=== PATIENT | female | born 1945 | race Caucasian/White ===

== ENCOUNTER → 2018-12-24 | Outpatient (CLI) | payer MEDICARE ==
--- NOTE | 2018-12-24 11:27 | Diagnostic Imaging Report ---
INDICATION: Right-sided sacral pain AP and lateral views of the sacrum shows no fracture. Sacroiliac joints are symmetric and appear normal. IMPRESSION: Negative sacrococcyx. Dictated by: Dictated on workstation # [id number]
--- NOTE | 2018-12-24 11:28 | Diagnostic Imaging Report ---
INDICATION: Low back pain Lumbar spine AP and lateral views of the lumbar spine show normal vertebral body height and alignment. There is mild degenerative disc changes at L1-2 and L2-3 with small osseous osteophytes forming at the anterior margins of the vertebral body endplates. IMPRESSION: Mild spondylosis deformans. No acute abnormality seen. Dictated by: Dictated on workstation # [id number]
== END ==
LOC: RAD FS 10:46
PROVIDERS: ATTEND Family Medicine
DX: M47.816 Spondylosis without myelopathy or radiculopathy, lumbar region (principal); M53.3 Sacrococcygeal disorders, not elsewhere classified
CPT/HCPCS: 72100; 72220

== ENCOUNTER 2019-02-15 05:18 | Emergency (ER) | payer MEDICARE ==
[~2019-02-15] VITALS: Ht 172.7 cm; Wt 86.2 kg
--- OUTSIDE RECORDS SUMMARY | 2019-02-15 05:25 | XMS REPORT | Continuity of Care Document ---
Author Organization Unknown Address Unknown Allergies There is no data. Medications There is no data. Problems Date Dx Coded Attending Type Code Diagnosis Diagnosed By 12/24/2018 TAVO WALLER MD, Ot M47.816 SPONDYLOSIS W/O MYELOPATHY OR RADICULOPA 12/24/2018 TAVO WALLER MD, Ot M53.3 SACROCOCCYGEAL DISORDERS, NOT ELSEWHERE 01/13/2019 TAVO WALLER MD, Ot M47.816 SPONDYLOSIS W/O MYELOPATHY OR RADICULOPA 01/13/2019 TAVO WALLER MD, Ot M53.3 SACROCOCCYGEAL DISORDERS, NOT ELSEWHERE 01/21/2019 TAVO WALLER MD, Ot M47.816 SPONDYLOSIS W/O MYELOPATHY OR RADICULOPA 01/21/2019 TAVO WALLER MD, Ot M53.3 SACROCOCCYGEAL DISORDERS, NOT ELSEWHERE Procedures There is no data. Results There is no data. Encounters ACCT No. Visit Date/Time Discharge Status Pt. Type Provider Facility Loc./Unit Complaint [id number] 12/24/2018 10:45:00 12/24/2018 23:59:59 [facility] [id number] 12/24/2018 10:46:00 12/24/2018 23:59:59 [facility] Outpatient TAVO WALLER MD [facility] RAD FS M54.5 M64.5
[2019-02-15] MEDS ORDERED: RT-ALBUTEROL/IPRATROPIUM 3 ML (DUONEB) VIAL INH STA (05:29)
[2019-02-15] MEDS ORDERED: LORazepam INJ 2 MG/ML (ATIVAN) VIAL IVP STA (05:29)
[2019-02-15] MEDS ORDERED: ASPIRIN 81 MG CHEW (CHILDREN'S ASA) PO ONE (05:30)
--- NOTE | 2019-02-15 05:39 | ED Chest Pain ---
General Stated Complaint: CHEST TIGHTNES/SOB Source: patient (YARY STONE MD) History of Present Illness Date Seen by Provider: Feb 15, 2019 Time Seen by Provider: 05:17 Initial Comments 73-year-old female presenting to the emergency department after waking up at 3 AM with shortness of breath and tightness in her chest. She has history of asthma in the past with allergies to try That they had. She reports having some sneezing and allergy type symptoms during the day yesterday but otherwise felt fine. She had gotten up at 3 AM and was sitting in a chair trying to help with her breathing but she was still having tightness in her chest and family after funny and decided she needed to come to the emergency department to be checked out. She denies any nausea or vomiting. She states the pain suddenly worse with movement or exertion. She has not found anything that makes tightness in her chest any better either. She is very anxious and tearful at times. (YARY STONE MD) Allergies and Home Medications Allergies Coded Allergies: Sulfa (Sulfonamide Antibiotics) (Verified Allergy, Unknown, 02/15/19) meperidine (Verified Allergy, Unknown, 02/15/19) propoxyphene (Verified Allergy, Unknown, 02/15/19) Patient Home Medication List Home Medication List Reviewed: Yes (YARY STONE MD) Review of Systems Review of Systems Constitutional: No chills, No diaphoresis, No fever EENTM: Nose Congestion Respiratory: Cough (with sneezing yesterday), Shortness of Air; Denies Stridor, Denies Wheezing Cardiovascular: Chest Pain (tightness in her chest) Gastrointestinal: No Symptoms Reported; Denies Nausea, Denies Vomiting Genitourinary: No Symptoms Reported Musculoskeletal: no symptoms reported Skin: No rash Psychiatric/Neurological: Anxiety Endocrine: No Symptoms Reported (YARY STONE MD) Past Yhxgiee-Iurudx-Wwybhm Hx Past Med/Social Hx: Reviewed Nursing Past Med/Soc Hx (YARY STONE MD) Patient Social History Recent Foreign Travel: No Contact w/Someone Who Travel: No (YARY STONE MD) Physical Exam Vital Signs Vital Signs - First Documented 02/15/19 05:37 Temp 97.9 Pulse 75 Resp 20 B/P (MAP) 152/81 (104) Pulse Ox 97 O2 Delivery Room Air (REID POOLE DO) Vital Signs Capillary Refill : (YARY STONE MD) Height, Weight, BMI Height: '" Weight: lbs. oz. kg; BMI Method: General Appearance: WD/WN, Anxious HEENT: PERRL/EOMI, Pharynx Normal Neck: Full Range of Motion, Non Tender, Supple; No Carotid Bruit Respiratory: Chest Non Tender, Lungs Clear, Normal Breath Sounds, No Accessory Muscle Use, No Respiratory Distress Cardiovascular: Regular Rate, Rhythm, Normal Peripheral Pulses Gastrointestinal: Normal Bowel Sounds, No Pulsatile Mass, Non Tender, Soft Extremity: Normal Capillary Refill, Normal Inspection, Non Tender Neurologic/Psychiatric: Alert, Oriented x3 Skin: Normal Color, Warm/Dry (YARY STONE MD) Progress/Results/Core Measures Results/Orders Lab Results Laboratory Tests Test 02/15/19 05:30 Range/Units White Blood Count 7.4 4.3-11.0 10^3/uL Red Blood Count 4.56 4.35-5.85 10^6/uL Hemoglobin 13.6 11.5-16.0 G/DL Hematocrit 41 35-52 % Mean Corpuscular Volume 90 80-99 FL Mean Corpuscular Hemoglobin 30 25-34 PG Mean Corpuscular Hemoglobin Concent 33 32-36 G/DL Red Cell Distribution Width 13.4 10.0-14.5 % Platelet Count 307 130-400 10^3/uL Mean Platelet Volume 9.7 7.4-10.4 FL Neutrophils (%) (Auto) 48 42-75 % Lymphocytes (%) (Auto) 39 12-44 % Monocytes (%) (Auto) 11 0-12 % Eosinophils (%) (Auto) 1 0-10 % Basophils (%) (Auto) 1 0-10 % Neutrophils # (Auto) 3.6 1.8-7.8 X 10^3 Lymphocytes # (Auto) 2.9 1.0-4.0 X 10^3 Monocytes # (Auto) 0.8 0.0-1.0 X 10^3 Eosinophils # (Auto) 0.1 0.0-0.3 10^3/uL Basophils # (Auto) 0.0 0.0-0.1 10^3/uL Prothrombin Time 12.9 12.2-14.7 SEC INR Comment 0.9 0.8-1.4 Activated Partial Thromboplast Time 28 24-35 SEC Sodium Level 138 135-145 MMOL/L Potassium Level 3.9 3.6-5.0 MMOL/L Chloride Level 101 98-107 MMOL/L Carbon Dioxide Level 21 21-32 MMOL/L Anion Gap 16 H 5-14 MMOL/L Blood Urea Nitrogen 14 7-18 MG/DL Creatinine 0.83 0.60-1.30 MG/DL Estimat Glomerular Filtration Rate > 60 BUN/Creatinine Ratio 17 Glucose Level 121 H 70-105 MG/DL Calcium Level 8.8 8.5-10.1 MG/DL Corrected Calcium 8.6 8.5-10.1 MG/DL Magnesium Level 1.8 1.8-2.4 MG/DL Total Bilirubin 0.6 0.1-1.0 MG/DL Aspartate Amino Transf (AST/SGOT) 14 5-34 U/L Alanine Aminotransferase (ALT/SGPT) 17 0-55 U/L Alkaline Phosphatase 68 40-136 U/L Troponin T 6 <=10 NG/L Pro-B-Type Natriuretic Peptide 24.0 <75.0 PG/ML Total Protein 7.0 6.4-8.2 GM/DL Albumin 4.2 3.2-4.5 GM/DL (REID POOLE DO) Medications Given in ED Current Medications Medications Dose Ordered Sig/Norbert Route Start Time Stop Time Status Last Admin Dose Admin Aspirin 324 mg ONCE ONCE PO 02/15/19 05:30 02/15/19 05:33 DC 02/15/19 05:40 324 MG (RIED POOLE DO) Vital Signs/I&O 02/15/19 05:37 Temp 97.9 Pulse 75 Resp 20 B/P (MAP) 152/81 (104) Pulse Ox 97 O2 Delivery Room Air (REID POOLE DO) Progress Progress Note : Time: 05:28 Progress Note Obtain labs and chest x-ray with electrocardiogram. Will give aspirin in case any of this is cardiac related as well as try a DuoNeb breathing treatment in ca se some of this is allergy related. Will also give a low-dose of Ativan since she is very anxious. On my review of her electrocardiogram she has sinus rhythm and there is no acute ST elevation. She does have a single PVC present. She has no prior tracing for comparison. Will pass care to Dr. Poole at shift change for follow-up on test results and final disposition. (YARY STONE MD) Initial ECG Impression Date: Feb 15, 2019 Initial ECG Impression Time: 05:25 Initial ECG Rate: 73 Initial ECG Rhythm: Normal Sinus Initial ECG Intervals: Normal Initial ECG Impression: Normal Initial ECG Comparisson: No Previous ECG Available Comment Sinus rhythm with a heart rate is 73 bpm. MO interval of 207 ms. QT interval of 393 ms and QT corrected interval of 433 ms. There is no acute ST elevation. There is no prior tracing for comparison. She does have a single premature ventricular complexes. (YARY STONE MD) Transfer of Care Time: 06:00 Care transferred to: Dr. Poole (YARY STONE MD) Departure Impression Primary Impression: Sensation of chest tightness Additional Impression: Anxiety about health Disposition: 01 HOME, SELF-CARE Condition: Improved Departure-Patient Inst. Decision time for Depature: 06:52 (REID POOLE DO) Referrals: TAVO WALLER MD (PCP/Family) Primary Care Physician Patient Instructions: Chest Pain That Is Not Caused by the Heart (DC) YARY STONE MD Feb 15, 2019 05:39 REID POOLE DO Feb 15, 2019 06:52
[2019-02-15 05:59] LABS: HEMATOCRIT 41 % (35-52); HEMOGLOBIN 13.6 G/DL (11.5-16.0); MEAN CORPUSCULAR HEMOGLOBIN 30 PG (25-34); MEAN CORPUSCULAR VOLUME 90 FL (80-99); WHITE BLOOD COUNT 7.4 10^3/uL (4.3-11.0)
[2019-02-15 06:00] LABS: MEAN CORPUSCULAR HGB CONC 33 G/DL (32-36); MEAN PLATELET VOLUME 9.7 FL (7.4-10.4); PLATELET COUNT 307 10^3/uL (130-400); RED CELL DISTRIBUTION WIDTH 13.4 % (10.0-14.5)
[2019-02-15 06:01] LABS: BASOPHILS % (AUTO) 1 % (0-10); EOSINOPHILS # (AUTO) 0.1 10^3/uL (0.0-0.3); EOSINOPHILS % (AUTO) 1 % (0-10); LYMPHOCYTES # (AUTO) 2.9 X 10^3 (1.0-4.0); LYMPHOCYTES % (AUTO) 39 % (12-44); MONOCYTES # (AUTO) 0.8 X 10^3 (0.0-1.0); MONOCYTES % (AUTO) 11 % (0-12); NEUTROPHILS # (AUTO) 3.6 X 10^3 (1.8-7.8); NEUTROPHILS % (AUTO) 48 % (42-75)
[2019-02-15 06:13] LABS: INR 0.9 (0.8-1.4); PROTHROMBIN TIME PATIENT 12.9 SEC (12.2-14.7)
[2019-02-15 06:19] LABS: CARBON DIOXIDE 21 MMOL/L (21-32); CHLORIDE 101 MMOL/L (98-107); POTASSIUM 3.9 MMOL/L (3.6-5.0); SODIUM 138 MMOL/L (135-145)
[2019-02-15 06:20] LABS: ALANINE AMINOTRANSFERASE 17 U/L (0-55); ALBUMIN 4.2 GM/DL (3.2-4.5); ALKALINE PHOSPHATASE 68 U/L (40-136); BILIRUBIN,TOTAL 0.6 MG/DL (0.1-1.0); BUN/CREATININE RATIO 17; CALCIUM 8.8 MG/DL (8.5-10.1); CREATININE SERUM 0.83 MG/DL (0.60-1.30); GFR ESTIMATED > 60; GLUCOSE 121 MG/DL (70-105); MAGNESIUM 1.8 MG/DL (1.8-2.4)
--- NOTE | 2019-02-15 06:44 | Diagnostic Imaging Report ---
Portable chest Indication: Chest tightness and shortness of breath. Findings: The lungs demonstrate no focal alveolar consolidation. There is no significant effusion. There is no pneumothorax. Heart size and mediastinal contours appear appropriate. The vascularity appears normal. There is no acute or suspicious osseous abnormality. Impression: 1. No radiographic evidence of an acute cardio pulmonary process. Dictated by: Dictated on workstation # [id number]
[2019-02-15 07:01] VITALS: BP 129/67
== END 2019-02-15 07:01 | disposition home or self-care (01) ==
LOC: EDUNIT# 05:18 → ER FS 05:21
DX: R07.89 Other chest pain (principal); F41.9 Anxiety disorder, unspecified; J45.909 Unspecified asthma, uncomplicated; Z88.2 Allergy status to sulfonamides; Z88.8 Allergy status to other drugs, medicaments and biological substances
CPT/HCPCS: 36415; 71045; 80053; 83735; 83880; 84484; 85025; 85610; 85730; 93005; 93041

== ENCOUNTER 2021-04-16 12:02 | Emergency (ER) | payer MEDICARE ==
[~2021-04-16] VITALS: Ht 172.7 cm; Wt 91.0 kg
--- NOTE | 2021-04-16 12:05 | ED Cardiac General ---
History of Present Illness General Stated Complaint: CHEST PAIN History of Present Illness Date Seen by Provider: Apr 16, 2021 Time Seen by Provider: 12:05 Initial Comments 76-year-old female presents with epigastric/chest discomfort. Patient reports that this been going on for about 2 days. She is got some congestion, generalized malaise. No shortness of breath. Patient ports that she went to urgent care because she wanted tested for Covid. At that time she was found to be negative for Covid and influenza and strep. They recommended she come to the ER for further evaluation. She has some minimal discomfort that is tender that been there consistently. No reports of cough and fever. Patient has not experienced any diaphoresis or radiation to her arms or neck. Patient does not report thing that makes her symptoms worse. Allergies and Home Medications Allergies Coded Allergies: Sulfa (Sulfonamide Antibiotics) (Verified Allergy, Unknown, 02/15/19) meperidine (Verified Allergy, Unknown, 02/15/19) propoxyphene (Verified Allergy, Unknown, 02/15/19) Patient Home Medication List Home Medication List Reviewed: Yes Review of Systems Review of Systems Constitutional: No chills, No fever; malaise EENTM: No Symptoms Reported Respiratory: Denies Cough, Denies Shortness of Air Cardiovascular: See HPI; Denies Lightheadedness, Denies Palpitations Gastrointestinal: Denies Abdominal Pain, Denies Nausea, Denies Vomiting Genitourinary: No Symptoms Reported Musculoskeletal: no symptoms reported Skin: no symptoms reported Psychiatric/Neurological: No Symptoms Reported Endocrine: No Symptoms Reported Hematologic/Lymphatic: No Symptoms Reported Past Tqfpddc-Jdhqka-Zmjfqw Hx Seasonal Allergies Seasonal Allergies: No Past Medical History Surgeries: Yes (Hernia Repair) Appendectomy, Gallbladder, Tonsillectomy Respiratory: Yes Asthma, Sleep Apnea Cardiac: Yes Hypertension Neurological: Yes (Fibromyalgia) Gastrointestinal: No Musculoskeletal: No Endocrine: Yes Hypothyroidsim HEENT: No Cancer: No Psychosocial: Yes Anxiety Blood Disorders: No Physical Exam Vital Signs Vital Signs - First Documented 04/16/21 12:05 Temp 36.6 Pulse 88 Resp 17 B/P (MAP) 156/109 (125) Pulse Ox 98 O2 Delivery Room Air Capillary Refill : Height, Weight, BMI Height: 5'8.00" Weight: 190lbs. 0oz. 86.808763ml; BMI Method:Stated General Appearance: No Apparent Distress, WD/WN Respiratory: Lungs Clear, Normal Breath Sounds Cardiovascular: Regular Rate, Rhythm, No Edema Gastrointestinal: Non Tender, Soft Extremity: Normal Capillary Refill, Normal Inspection Neurologic/Psychiatric: Alert, Oriented x3, No Motor/Sensory Deficits, Normal Mood/Affect, microelectronics assembler II-XII Norm as Tested Skin: Normal Color, Warm/Dry Progress/Results/Core Measures Results/Orders Lab Results Laboratory Tests Test 04/16/21 13:02 Range/Units White Blood Count 9.6 4.3-11.0 10^3/uL Red Blood Count 4.76 4.35-5.85 10^6/uL Hemoglobin 14.2 11.5-16.0 G/DL Hematocrit 42 35-52 % Mean Corpuscular Volume 89 80-99 FL Mean Corpuscular Hemoglobin 30 25-34 PG Mean Corpuscular Hemoglobin Concent 34 32-36 G/DL Red Cell Distribution Width 13.0 10.0-14.5 % Platelet Count 318 130-400 10^3/uL Mean Platelet Volume 9.4 7.4-10.4 FL Immature Granulocyte % (Auto) 0 % Neutrophils (%) (Auto) 59 42-75 % Lymphocytes (%) (Auto) 32 12-44 % Monocytes (%) (Auto) 7 0-12 % Eosinophils (%) (Auto) 1 0-10 % Basophils (%) (Auto) 1 0-10 % Neutrophils # (Auto) 5.7 1.8-7.8 X 10^3 Lymphocytes # (Auto) 3.1 1.0-4.0 X 10^3 Monocytes # (Auto) 0.7 0.0-1.0 X 10^3 Eosinophils # (Auto) 0.1 0.0-0.3 10^3/uL Basophils # (Auto) 0.1 0.0-0.1 10^3/uL Immature Granulocyte # (Auto) 0.0 0.0-0.1 10^3/uL Sodium Level 138 135-145 MMOL/L Potassium Level 4.5 3.6-5.0 MMOL/L Chloride Level 103 98-107 MMOL/L Carbon Dioxide Level 24 21-32 MMOL/L Anion Gap 11 5-14 MMOL/L Blood Urea Nitrogen 14 7-18 MG/DL Creatinine 0.96 0.60-1.30 MG/DL Estimat Glomerular Filtration Rate 57 BUN/Creatinine Ratio 15 Glucose Level 86 70-105 MG/DL Calcium Level 9.7 8.5-10.1 MG/DL Corrected Calcium 9.6 8.5-10.1 MG/DL Total Bilirubin 0.4 0.1-1.0 MG/DL Aspartate Amino Transf (AST/SGOT) 12 5-34 U/L Alanine Aminotransferase (ALT/SGPT) 13 0-55 U/L Alkaline Phosphatase 73 40-136 U/L Troponin I < 0.30 <0.30 NG/ML C-Reactive Protein < 0.30 <0.50 MG/DL Total Protein 7.1 6.4-8.2 GM/DL Albumin 4.1 3.2-4.5 GM/DL Lipase 12 8-78 U/L My Orders Orders - PATY JACKSON L DO Ekg Tracing (04/16/21 12:11) Monitor-Rhythm Ecg Trace Only (04/16/21 12:11) Cbc With Automated Diff (04/16/21 12:11) Comprehensive Metabolic Panel (04/16/21 12:11) Lipase (04/16/21 12:11) Crp Fs (04/16/21 12:11) Troponin I Fs (04/16/21 12:11) Chest Pa/Lat (2 View) (04/16/21 12:23) Vital Signs/I&O 04/16/21 12:05 Temp 36.6 Pulse 88 Resp 17 B/P (MAP) 156/109 (125) Pulse Ox 98 O2 Delivery Room Air Progress Progress Note : Progress Note Patient with no acute findings on chest x-ray, labs, EKG. Patient with mild chest congestion over the last couple days. Discussed with her that there is a variety of things that could cause what she is feeling and suggest she follow with her primary care provider for further outpatient evaluation. Patient is discharged in stable condition Initial ECG Impression Date: Apr 16, 2021 Initial ECG Impression Time: 12:07 Initial ECG Rate: 75 Initial ECG Rhythm: Normal Sinus Initial ECG Intervals: Normal Initial ECG Impression: Normal Departure Impression Primary Impression: Chest congestion Disposition: HOME, SELF-CARE Condition: Stable Departure-Patient Inst. Referrals: SELF,TAVO PEACOCK (PCP/Family) Primary Care Physician Patient Instructions: Chest Pain That Is Not Caused by the Heart (DC) Add. Discharge Instructions: Follow-up with your primary care provider for further evaluation PATY JACKSON DO Apr 16, 2021 12:05
[2021-04-16 13:09] LABS: BASOPHILS % (AUTO) 1 % (0-10); EOSINOPHILS % (AUTO) 1 % (0-10); HEMATOCRIT 42 % (35-52); HEMOGLOBIN 14.2 G/DL (11.5-16.0); LYMPHOCYTES % (AUTO) 32 % (12-44); MEAN CORPUSCULAR HEMOGLOBIN 30 PG (25-34); MEAN CORPUSCULAR HGB CONC 34 G/DL (32-36); MEAN CORPUSCULAR VOLUME 89 FL (80-99); MEAN PLATELET VOLUME 9.4 FL (7.4-10.4); MONOCYTES % (AUTO) 7 % (0-12); NEUTROPHILS % (AUTO) 59 % (42-75); PLATELET COUNT 318 10^3/uL (130-400); WHITE BLOOD COUNT 9.6 10^3/uL (4.3-11.0)
[2021-04-16 13:10] LABS: BASOPHILS # (AUTO) 0.1 10^3/uL (0.0-0.1); EOSINOPHILS # (AUTO) 0.1 10^3/uL (0.0-0.3); LYMPHOCYTES # (AUTO) 3.1 X 10^3 (1.0-4.0); MONOCYTES # (AUTO) 0.7 X 10^3 (0.0-1.0); NEUTROPHILS # (AUTO) 5.7 X 10^3 (1.8-7.8)
[2021-04-16 13:29] LABS: ALANINE AMINOTRANSFERASE 13 U/L (0-55); ALBUMIN 4.1 GM/DL (3.2-4.5); ALKALINE PHOSPHATASE 73 U/L (40-136); BILIRUBIN,TOTAL 0.4 MG/DL (0.1-1.0); BUN/CREATININE RATIO 15; CALCIUM 9.7 MG/DL (8.5-10.1); CARBON DIOXIDE 24 MMOL/L (21-32); CHLORIDE 103 MMOL/L (98-107); CREATININE SERUM 0.96 MG/DL (0.60-1.30); GFR ESTIMATED 57; GLUCOSE 86 MG/DL (70-105); LIPASE 12 U/L (8-78); POTASSIUM 4.5 MMOL/L (3.6-5.0); SODIUM 138 MMOL/L (135-145); TOTAL PROTEIN 7.1 GM/DL (6.4-8.2)
[2021-04-16 14:00] VITALS: BP 153/78
--- NOTE | 2021-04-16 14:17 | Diagnostic Imaging Report ---
EXAM: CHEST PA/LAT (2 VIEW) INDICATION: Chest congestion. COMPARISON: Chest radiograph 02/15/2019. FINDINGS: Normal heart size and pulmonary vascularity. No dense consolidation, pleural effusion or pneumothorax. No acute osseous findings. Cholecystectomy clips. IMPRESSION: No acute cardiopulmonary findings. Dictated by: Dictated on workstation # [id number]
== END 2021-04-16 14:00 | disposition home or self-care (01) ==
LOC: EDUNIT# 12:02 → ER FS 12:03
DX: R09.89 Other specified symptoms and signs involving the circulatory and respiratory systems (principal); J45.909 Unspecified asthma, uncomplicated; G47.30 Sleep apnea, unspecified; I10 Essential (primary) hypertension
CPT/HCPCS: 36415; 71046; 80053; 83690; 84484; 85025; 86141; 93005; 93041

== ENCOUNTER → 2021-05-22 | Outpatient (CLI) | payer MEDICARE | LOC: CARD 13:00 | PROVIDERS: ATTEND Internal Medicine Cardiovascular Disease | DX: R07.9 Chest pain, unspecified (principal); I08.3 Combined rheumatic disorders of mitral, aortic and tricuspid valves | CPT/HCPCS: 93306 ==

== ENCOUNTER → 2021-05-25 | Outpatient (CLI) | payer MEDICARE ==
[~2021-05-25] VITALS: Ht 172 cm; Wt 90.0 kg
[~2021-05-25] MED LIST: CATHETER FLUSH 10 ML SYR IV PRN
[2021-05-25 09:27] VITALS: BP 132/73
[2021-05-25 09:35] VITALS: BP 151/69
--- NOTE | 2021-05-26 09:01 | NUCLEAR STRESS TEST ---
TREADMILL NUCLEAR STRESS TEST Date of procedure: 05/25/2021. Primary care provider: Ramierz Traore MD. Admitting physician: Inder Ruiz Jr., MD. INDICATION: Chest pain. BASELINE ELECTROCARDIOGRAM: Sinus rhythm with first-degree AV block and low voltage in the precordial leads. STRESS TEST PROCEDURE: The patient was exercised for a total of 4 minutes and 4 seconds of the standard Gamal protocol achieving a maximum MET level of 6.2. The resting heart rate was 66 bpm and the peak heart rate was 150 bpm, which represents 104% of the maximum predicted heart rate. The resting blood pressure was 132/73 mmHg and the peak blood pressure was 210/67 mmHg. This represents a normal heart rate and a hypertensive blood pressure response to exercise. The test was stopped due to fatigue. There was no chest discomfort during the test. There were no arrhythmias during the test. There were no significant stress induced electrocardiogram changes. The patient exhibited good exercise capacity for age. NUCLEAR PROCEDURE: The patient was administered 10.1 mCi of intravenous technetium 99m Tetrofosmin at rest for the rest images. The patient was subsequently administered 33 mCi of intravenous technetium 99 M Tetrofosmin at peak stress for the stress images. Following an appropriate wait after each injection, imaging was obtained. The images were subsequently processed and reformatted in the usual views. Gated imaging was obtained. The image quality was adequate. CT attenuation correction was used as a adjunct to standard imaging. Both the corrected and uncorrected images were reviewed for interpretation. NUCLEAR RESULTS: There was normal myocardial perfusion in all segments without evidence of infarction or ischemia. There was normal left ventricular chamber size with an end-diastolic volume of 37 mL and an end-systolic volume of 10 mL. There was no evidence of transient ischemic dilatation. The TID ratio was 0.91. There was normal wall motion in all segments with a calculated ejection f raction of 74%. IMPRESSION: 1. Normal heart rate and i.e. hypertensive blood pressure response to exercise. 2. There was no exercise-induced chest discomfort, arrhythmias, or electrocardiogram changes. 3. The patient exhibited good exercise capacity for age. 4. There was normal myocardial perfusion in all segments without evidence of infarction or ischemia. 5. There was normal wall motion in all segments with a calculated ejection fraction of 74%. Certain portions of this document may have been dictated utilizing voice recognition technology. Inherent to this technology, typographical and grammatical errors may exist. As much as I am diligent to identify and correct these mistakes, some errors may remain in the document. INDER RUIZ JR, MD May 26, 2021 09:01
== END ==
LOC: CARD 08:15
PROVIDERS: ATTEND Internal Medicine Cardiovascular Disease
DX: R07.9 Chest pain, unspecified (principal)
CPT/HCPCS: 78452; 93017; A9502

== ENCOUNTER → 2022-07-12 | Outpatient (CLI) | payer MEDICARE | LOC: CARDFS 13:00 | PROVIDERS: ATTEND Internal Medicine Cardiovascular Disease | DX: I34.0 Nonrheumatic mitral (valve) insufficiency (principal) | CPT/HCPCS: 93306 ==

== ENCOUNTER 2023-06-30 15:45 | Emergency (ER) | payer MEDICARE ==
[~2023-06-30] VITALS: Ht 172 cm; Wt 89.0 kg
--- NOTE | 2023-06-30 16:04 | ED Fall/Injury ---
General Chief Complaint: Trauma-Non Activation Stated Complaint: FALL; SHOULDER PAIN Nursing Triage Note: PT FELL ON HER DECK AND LANDED ON HER RIGHT SHOULDER. NO LOC. Source: patient, EMS History of Present Illness Date Seen by Provider: Jun 30, 2023 Time Seen by Provider: 16:03 Initial Comments 78-year-old female presenting by EMS from home after she had fallen while trying to water plants. She states that there was a staff that she missed and ended up falling. She fell on her right shoulder and right knee. She had recently had a scope done on the right knee. She is having increased pain especially with movement of the right shoulder. She denies hitting her head or losing consciousness. She denies having any nausea or vomiting. She was feeling fine before she misjudged the step and fell. Location Injury Occurred: HOME Occurred: just prior to arrival Severity: moderate Injuries/Pain Location: upper extremity (right shoulder), lower extremity (right knee) Context: tripped Loss of Consciousness: no loss of consciousness Modifying Factors: Worse With Movement Associated Symptoms (Fall): No Abdominal Pain, No Chest Pain, No Confusion, No Dizziness, No Headache, No Lightheadedness, No Muscle Spasms, No Nausea/Vomiting, No Neck Pain, No Ringing in Ears, No Seizures, No Shortness of Air, No Slurred Speech, No Trouble Walking, No Vision Changes Allergies and Home Medications Allergies Coded Allergies: Sulfa (Sulfonamide Antibiotics) (Verified Allergy, Unknown, 02/15/19) meperidine (Verified Allergy, Unknown, 02/15/19) propoxyphene (Verified Allergy, Unknown, 02/15/19) Patient Home Medication List Home Medication List Reviewed: Yes Review of Systems Review of Systems Constitutional: No chills, No fever Eyes: No Symptoms Reported Ears, Nose, Mouth, Throat: no symptoms reported Respiratory: no symptoms reported Cardiovascular: no symptoms reported Gastrointestinal: no symptoms reported Genitourinary: no symptoms reported Musculoskeletal: see HPI Skin: No change in color Psychiatric/Neurological: Denies Headache Past Raedcrb-Dyzhjc-Sejjly Hx Patient Social History Tobacco Use?: No Use of E-Cig and/or Vaping dev: No Substance use?: No Alcohol Use?: No Pt feels they are or have been: No Immunizations Up To Date Influenza Vaccine Up-to-Date: Yes; Up-to-Date First/Initial COVID19 Vaccinat: 10/2020 Second COVID19 Vaccination Rah: 11/2020 Third COVID19 Vaccination Date: 10/2020 Seasonal Allergies Seasonal Allergies: No Past Medical History Surgeries: Yes (Hernia Repair) Appendectomy, Gallbladder, Tonsillectomy Respiratory: Yes Asthma, Sleep Apnea Cardiac: Yes Hypertension Neurological: Yes (Fibromyalgia) Gastrointestinal: No Musculoskeletal: No Endocrine: Yes Hypothyroidsim HEENT: No Cancer: No Psychosocial: Yes Anxiety Blood Disorders: No Physical Exam Vital Signs Vital Signs - First Documented 06/30/23 15:49 Temp 36.4 Pulse 96 Resp 16 B/P (MAP) 159/80 (106) Pulse Ox 96 O2 Delivery Room Air Capillary Refill : Less Than 3 Seconds Height, Weight, BMI Height: 5'8.00" Weight: 190lbs. 0oz. 86.788979dn; 30.00 BMI Method:Stated General Appearance: WD/WN, mild distress HEENT: PERRL/EOMI, pharynx normal Neck: non-tender, full range of motion, supple, normal inspection Cardiovascular: normal peripheral pulses, regular rate, rhythm Respiratory: chest non-tender, lungs clear, normal breath sounds Extremities: normal capillary refill, swelling (mild swelling to right knee with 2 healing wounds from arthroscopy. pain with palpation and movement at knee. 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, no motor/sensory deficits, alert, oriented x 3 Skin: normal color, warm/dry Archana Coma Score Best Eye Response: (4) Open Spontaneously Best Verbal Response: (5) Oriented Best Motor Response: (6) Obeys Commands Archana Total: 15 Progress/Results/Core Measures Results/Orders My Orders Orders - YARY STONE MD Shoulder 3 View Right (06/30/23 15:54) Knee 3 View Right (06/30/23 15:54) Ketorolac Injection (Ketorolac Injection (06/30/23 16:13) Orthopedic Equiment (06/30/23 16:13) Ed Ortho/Other Supplies Order (06/30/23 16:13) Ice: Apply To Affected Area (06/30/23 16:13) Vital Signs/I&O 06/30/23 06/30/23 15:49 16:39 Temp 36.4 36.4 Pulse 96 96 Resp 16 16 B/P (MAP) 159/80 (106) 159/80 Pulse Ox 96 96 O2 Delivery Room Air Room Air Blood Pressure Mean: 106 Progress Progress Note #1: Progress Note Obtain x-rays of the right shoulder and right knee where she was having pain from the fall. Ice and elevation to help with pain. Progress Note #2: Progress Note On my personal review and interpretation of the three-view films of the right shoulder and right knee she has a AC separation on the right shoulder but I did not see any fracture. No acute bony abnormality on the right knee. Patient on follow-up and return precautions. Use ice and elevation as well as a sling to help with limiting movement of the right arm. Diagnostic Imaging Diagonstic Imaging: Xray Plain Films/CT/US/NM/MRI: other (Right shoulder) [facility] [place] [place] NAME: MICHAEL GODOY [employer] REC#: [id number] PT STATUS: REG ER : 1945 PHYSICIAN: YARY STONE MD ADMIT DATE: 06/30/23/ER FS Signed Date of Exam:06/30/23 SHOULDER 3 VIEW RIGHT CLINICAL HISTORY: Fall. Right shoulder pain. COMPARISON: None. TECHNIQUE: 3 views of the right shoulder. FINDINGS: No acute fracture in the right shoulder. There is superior displacement of the lateral aspect of the right clavicle relative to the acromium. No suspicious focal osseous lesions. The included right chest is clear. IMPRESSION: 1. Findings most suggestive of a sprain of the right AC joint, likely grade 1 or 2. 2. No acute fracture in the right shoulder. Dictated by: Dictated on workstation # [id number] Dict: 06/30/23 1618 Trans: 06/30/231626 [facility] [id number] Interpreted by: GALEN ESCOBAR DO Electronically signed by: GALEN ESCOBAR DO 06/30/231626 Reviewed: Reviewed by Me Diagonstic Imaging: Xray Plain Films/CT/US/NM/MRI: knee Comments [facility] [place] [place] NAME: MICHAEL GODOY [employer] REC#: [id number] PT STATUS: REG ER : 1945 PHYSICIAN: YARY STONE MD ADMIT DATE: 06/30/23/ER FS Signed Date of Exam:06/30/23 KNEE 3 VIEW RIGHT INDICATION: Right knee pain after fall. COMPARISON: None. DISCUSSION: Three views of the right knee were obtained. Mild degenerative disease. No effusion. No fracture or dislocation. Alignment is anatomic. Soft tissues are unremarkable. IMPRESSION: 1. Negative right knee. Dictated by: Dictated on workstation # [id number] Dict: 06/30/23 1619 Trans: 06/30/23 1620 [facility] [id number] Interpreted by: TALHA ADAN MD Electronically signed by: TALHA ADAN MD 06/30/231619 Reviewed: Reviewed by Me Departure Impression Primary Impression: AC separation, type 2 Qualified Codes: S43.101A - Unspecified dislocation of right acromioclavicular joint, initial encounter Additional Impressions: Right shoulder pain Qualified Codes: M25.511 - Pain in right shoulder Contusion of right knee, initial encounter Fall at home Qualified Codes: W19.XXXA - Unspecified fall, initial encounter; Y92.009 - Unspecified place in unspecified non-institutional (private) residence as the place of occurrence of the external cause Disposition: 01 HOME, SELF-CARE Condition: Stable Departure-Patient Inst. Decision time for Depature: 16:39 Referrals: TAVO WALLER MD (PCP) Primary Care Physician Patient Instructions: How to Use a Shoulder Sling ED, Preventing Falls ED, shoulder, Shoulder Pain ED Add. Discharge Instructions: Apply ice 15 to 20 minutes every few hours as needed to help with pain and swe lling. Use sling to help support your right arm and limit movement for the next 3 to 5 days. Follow up with clinic and they may have you do some physical therapy to help with the shoulder. Ibuprofen and Acetaminophen will help with pain along with ice and resting the arm For severe pain you could try the Hydrocodone you have at home. All discharge instructions reviewed with patient and/or family. Voiced understanding. YARY STONE MD Jun 30, 2023 16:03
[2023-06-30] MEDS ORDERED: KETOROLAC INJ 30 MG/ML VIAL IVP STA (16:13)
--- NOTE | 2023-06-30 16:21 | Diagnostic Imaging Report ---
INDICATION: Right knee pain after fall. COMPARISON: None. DISCUSSION: Three views of the right knee were obtained. Mild degenerative disease. No effusion. No fracture or dislocation. Alignment is anatomic. Soft tissues are unremarkable. IMPRESSION: 1. Negative right knee. Dictated by: Dictated on workstation # [id number]
--- NOTE | 2023-06-30 16:24 | Diagnostic Imaging Report ---
CLINICAL HISTORY: Fall. Right shoulder pain. COMPARISON: None. TECHNIQUE: 3 views of the right shoulder. FINDINGS: No acute fracture in the right shoulder. There is superior displacement of the lateral aspect of the right clavicle relative to the acromium. No suspicious focal osseous lesions. The included right chest is clear. IMPRESSION: 1. Findings most suggestive of a sprain of the right AC joint, likely grade 1 or 2. 2. No acute fracture in the right shoulder. Dictated by: Dictated on workstation # [id number]
[2023-06-30 16:39] VITALS: BP 159/80
== END 2023-06-30 16:59 | disposition home or self-care (01) ==
LOC: EDUNIT# 15:45 → ER FS 15:46
DX: S43.101A Unspecified dislocation of right acromioclavicular joint, initial encounter (principal); S80.01XA Contusion of right knee, initial encounter; W01.0XXA Fall on same level from slipping, tripping and stumbling without subsequent striking against object, initial encounter; Y92.009 Unspecified place in unspecified non-institutional (private) residence as the place of occurrence of the external cause
CPT/HCPCS: 73030; 73562; 96374